=== PATIENT | female | born 1995 | race Caucasian/White ===

== ENCOUNTER 2019-11-16 17:50 | Emergency (ER) | payer OTHER ==
[~2019-11-16] VITALS: Ht 162.5 cm; Wt 127.0 kg
[2019-11-16] MEDS ORDERED: ANTIBIOTIC28.4 GM T (18:43)
[2019-11-16] MEDS ORDERED: AUGMENTIN 875-875 MG PO (18:43)
== END 2019-11-16 19:19 | disposition home or self-care (01) ==
LOC: ED 17:50
DX: S61.451A Open bite of right hand, initial encounter (principal); Z29.14 Encounter for prophylactic rabies immune globulin; Z88.8 Allergy status to other drugs, medicaments and biological substances; W55.01XA Bitten by cat, initial encounter; Y93.89 Activity, other specified; Y92.89 Other specified places as the place of occurrence of the external cause; Y99.8 Other external cause status

== ENCOUNTER 2019-11-19 11:58 | Emergency (ER) | payer OTHER ==
[~2019-11-19] VITALS: Ht 162.5 cm; Wt 127.0 kg
[~2019-11-19 11:58] MED LIST: ANTIBIOTIC28.4 GM T; AUGMENTIN 875-875 MG PO
== END 2019-11-19 12:40 | disposition home or self-care (01) ==
LOC: ED 11:58
DX: Z23 Encounter for immunization (principal); Z88.8 Allergy status to other drugs, medicaments and biological substances; Z79.2 Long term (current) use of antibiotics

== ENCOUNTER 2019-11-24 16:55 | Emergency (ER) | payer OTHER ==
[~2019-11-24] VITALS: Ht 162.5 cm; Wt 127.0 kg
== END 2019-11-24 17:47 | disposition home or self-care (01) ==
LOC: ED 16:55
DX: S61.451D Open bite of right hand, subsequent encounter (principal); Z29.14 Encounter for prophylactic rabies immune globulin; Z88.8 Allergy status to other drugs, medicaments and biological substances; W55.01XD Bitten by cat, subsequent encounter

== ENCOUNTER 2019-12-01 17:22 | Emergency (ER) | payer OTHER ==
[~2019-12-01] VITALS: Ht 162.5 cm; Wt 129.3 kg
== END 2019-12-01 18:00 | disposition home or self-care (01) ==
LOC: ED 17:22
DX: Z23 Encounter for immunization (principal); Z88.8 Allergy status to other drugs, medicaments and biological substances; Z79.2 Long term (current) use of antibiotics

== ENCOUNTER 2019-12-27 17:49 | Emergency (ER) | payer OTHER ==
[~2019-12-27] VITALS: Ht 162.5 cm; Wt 129.3 kg
[2019-12-27] MEDS ORDERED: Motrin,Rufen800 MG PO ×2 (20:31→20:32)
== END 2019-12-27 20:39 | disposition home or self-care (01) ==
LOC: ED 17:49
DX: M77.8 Other enthesopathies, not elsewhere classified (principal); L25.9 Unspecified contact dermatitis, unspecified cause; Z88.8 Allergy status to other drugs, medicaments and biological substances